=== PATIENT | female | born 1990 | race Caucasian/White ===

== ENCOUNTER 2022-11-24 11:41 | Emergency (ER) | payer MEDICAID, SELFPAY ==
[2022-11-24] VITALS (7 sets, daily range): BP systolic 103–135; BP diastolic 63–97; PULSE 56–116; RESP 16–20; TEMP 36.6–36.8; O2SAT 96–99; BMI 24.7
[2022-11-24 12:12] LABS: Microscopic, Urine URINE MICROSCOPIC (MICROSCOPIC)
[2022-11-24 12:15] LABS: Appearance,Urine CLEAR (Clear); Blood, Urine Negative (Negative); Color,Urine YELLOW (Yellow); Glucose,Urine (UA) Negative (Negative); Ketones,Urine TRACE (Negative); Leukocyte Esterase,Urine TRACE (Negative); Nitrate,Urine Negative (Negative); PH,Urine 5.5 (5.0-8.5); Protein,Urine Negative (Negative); Specific Gravity, Urine >= 1.030 (1.005-1.030); Urobilinogen,Urine 0.2 EU/dl (0.2)
[2022-11-24 12:18] LABS: Urine Pregnancy, HCG Qual. Negative (Negative)
[2022-11-24 12:27] LABS: Bilirubin,Urine Negative (Negative)
[2022-11-24 12:28] LABS: Bacteria,Urine Trace /lpf; RBC,Urine Occasional #/hpf (0-3); WBC,Urine Occasional #/hpf (0-3)
--- NOTE | 2022-11-24 13:15 | PC.NURSE ---
ROUNDED ON PT NO COMPLAINTS AT THIS TIME,DIMMED LIGHT AND LAYED BED BACK FOR PT
--- NOTE | 2022-11-24 13:26 | HMH.EDGENADL ---
Discharge Plan Disposition Patient Disposition: Home, Self-Care Condition: Good Prescriptions Prescriptions: New hydroxyzine HCl 50 mg tablet 50 mg PO Q8H Qty: 14 0RF nitrofurantoin monohyd/m-cryst [Macrobid] 100 mg capsule 100 mg PO BID 5 Days Qty: 10 0RF Rx Instructions: must administer with a meal/food No Action methocarbamol 750 MG tablet 750 mg PO BID Qty: 14 0RF naproxen 500 MG tablet 500 mg PO BID Qty: 14 0RF Referrals Follow up/Referrals: Provider,Referral, MD [Primary Care Provider] - See instructions Clinical Impressions Clinical Impression: Anxiety and depression, Cystitis, Acute anxiety Instructions Patient Instructions: Anxiety Disorders Print Language Print Language: Georgian Discharge ED Provider: Bertrand Rojas General Adult HPI General Chief complaint: Anxiety Stated complaint: SOA bodyaches tense possible anxiety Time Seen by Provider: 11/24/22 13:33 Mode of Arrival: Ambulatory Source of Information: Patient Limitations: No Limitations Description of Symptoms (Recalled from ER Triage Doc. by RN): pt comes in with complaints of generalized anxiety. pt reports that she is going through a breakup. she feels that she is tense in her shoulders, feels that she is being wrang out like a towel . symptoms ongoing for over a month, but symptoms have gotten worse the past few days. History of Present Illness HPI narrative: Patient presents to the emergency department after reportedly having anxiety attack at home. She states that she typically does not go to the doctor and is not currently taking any medication for anxiety at home. She states that she has had tension all over her body. She denies any fever, chills, cough, congestion, chest pain or shortness of breath. Denies any abdominal pain. Denies any possibility of being . Related Data Previous Rx's Medication Instructions Recorded methocarbamol 750 mg tablet 750 mg PO BID #14 tabs 07/15/18 naproxen 500 mg tablet 500 mg PO BID #14 tabs 07/15/18 hydroxyzine HCl 50 mg tablet 50 mg PO Q8H axety #14 tabs 11/24/22 nitrofurantoin 100 mg PO BID 5 days #10 caps 11/24/22 monohydrate/macrocrystals 100 mg capsule (Macrobid) Allergies Allergy/AdvReac Type Severity Reaction Status Date / Time No Known Allergies Allergy Verified 11/24/22 12:24 [facility] Disclaimer: The information contained in this section may have been updated after the patient was seen, as this information can be updated by other users. Social History Smoking Status: Current every day smoker alcohol intake: never current occupational status: employed Travel in the last 8 weeks: Inside the [place] ROS Obtained: Yes All systems reviewed & no additional complaints except as documented Neurologic Comments: Anxiety Physical Exam General General appearance: alert and in no apparent distress Comment: Tearful Head Head exam: atraumatic and normocephalic Eye Eye exam: Present normal appearance, PERRL and EOMI Respiratory Respiratory exam: Present normal lung sounds bilaterally Cardiovascular Cardiovascular exam: Present regular rate, normal rhythm and normal heart sounds Abdominal Exam Abdominal exam: Present soft and normal bowel sounds Extremities Exam Extremities exam: Present normal inspection Neurological Exam Neurological exam: Present alert and oriented X3 Psychiatric Psychiatric exam: Present anxious and other (Tearful) Medical Decision Making Artur Inquiry Pt receiving controlled substance: No Artur was queried for this patient: No Vital Signs: 11/24/22 12:20 11/24/22 11:56 11/24/22 12:00 Temperature 97.9 F Temperature Source Oral Pulse Rate 116 H 87 Pulse Rate [Left] 86 Respiratory Rate 16 Blood Pressure 134/89 128/80 Blood Pressure [Right Arm] 135/87 Blood Pressure Mean 99 100 Blood Pressure Mean [Right Arm] 103 02 Sat by Pulse Oximetry 98 99 98 Oxygen Deborah
== END 2022-11-24 13:47 | disposition home or self-care (01) ==
PROVIDERS: Emergency Provider Emergency Medicine
DX: F41.8 Other specified anxiety disorders (principal); N30.00 Acute cystitis without hematuria; F17.210 Nicotine dependence, cigarettes, uncomplicated
CPT/HCPCS: 81001; 81025; 99283; 99284

== ENCOUNTER → 2022-12-02 23:34 | Outpatient (CLI) | payer MEDICAID, SELFPAY ==
[2022-12-02 17:25] LABS: Alanine Aminotransferase 13 U/L (12-78); Albumin Level 4.9 g/dl (3.5-5.0); Albumin/Globulin Ratio 1.6 (1.1-1.8); Alkaline Phosphatase 70 U/L (38-126); Anion Gap 11.3 mEq/L (5-15); Aspartate Amino Transferase 23 U/L (14-36); Bilirubin,Total 0.9 mg/dl (0.2-1.3); Blood Urea Nitrogen 10 mg/dl (7-17); Calcium 9.5 mg/dl (8.4-10.2); Carbon Dioxide 25 mmol/L (22.0-30.0); Chloride 106 mmol/L (98-107); Cholesterol 144 mg/dl (140-200); Estimated Glomerular Filt Rate 117 ml/min (>60); GFR (African American) 142 ML/MIN (>60); Globulin 3.1 g/dL (1.3-3.2); Glucose 80 mg/dl (74-100); HDL Cholesterol 36 mg/dl (40-60); Potassium 4.3 mmoL/L (3.5-5.1); Sodium 138 mmol/L (136-145); Triglycerides 87 mg/dl (30-150); VLDL Cholesterol 17 mg/dL (0-40)
[2022-12-02 17:27] LABS: Basophils # 0.1 K/mm3 (0-0.2); Eosinophils # 0.2 K/mm3 (0.0-0.4); Eosinophils % 2.4 % (0.1-12.0); Hematocrit 40.4 % (37.0-47.0); Hemoglobin 14.1 g/dL (12.2-16.2); Lymphocytes # 1.4 K/mm3 (0.7-4.5); Mean Corpuscular HGB Conc 34.9 g/dL (31.8-35.4); Mean Corpuscular Hemoglobin 31.1 pg (27.0-31.2); Mean Corpuscular Volume 89.1 fl (81-99); Mean Platelet Volume 8.8 fl (7.4-10.4); Monocytes # 0.5 K/mm3 (0.1-1.0); Neutrophils % 76.5 % (37.0-80.0); Platelet Count 316 K/mm3 (142-424); Red Blood Count 4.53 M/mm3 (4.20-5.40); Red Cell Distribution Width 12.7 % (11.5-17.5); White Blood Count 9.1 K/mm3 (4.8-10.8)
[2022-12-02 17:36] LABS: Direct LDL Cholesterol 94.57 mg/dL (100-129)
[2022-12-02 17:40] LABS: Hemoglobin A1C 4.7 % (4.0-6.0)
== END ==
PROVIDERS: PCP Nurse Practitioner Family; Visit Provider Nurse Practitioner Family
DX: Z00.00 Encounter for general adult medical examination without abnormal findings (principal); Z79.899 Other long term (current) drug therapy
CPT/HCPCS: 80053; 80061; 83036; 84443; 85025

== ENCOUNTER → 2023-06-04 23:50 | Outpatient (CLI) | payer MEDICAID, SELFPAY ==
[2023-06-06 23:09] LABS: Neisseria gonorrhoeae, NAA Negative (Negative)
== END ==
PROVIDERS: PCP Nurse Practitioner Family; Visit Provider Nurse Practitioner Family
DX: R30.9 Painful micturition, unspecified (principal); N39.0 Urinary tract infection, site not specified; B37.31 Acute candidiasis of vulva and vagina; B95.4 Other streptococcus as the cause of diseases classified elsewhere
CPT/HCPCS: 87086; 87088; 87186; 87491; 87591

== ENCOUNTER → 2023-09-03 10:31 | Outpatient (CLI) | payer MEDICAID, SELFPAY ==
[2023-09-03 19:06] LABS: Basophils % 0.5 % (0.1-2.0); Eosinophils # 0.2 K/mm3 (0.0-0.4); Eosinophils % 2.9 % (0.1-12.0); Hematocrit 38.2 % (37.0-47.0); Hemoglobin 13.3 g/dL (12.2-16.2); Lymphocytes # 2.3 K/mm3 (0.7-4.5); Lymphocytes % 37.6 % (10-50); Mean Corpuscular Hemoglobin 31.7 pg (27.0-31.2); Mean Corpuscular Volume 90.7 fl (81-99); Mean Platelet Volume 9.1 fl (7.4-10.4); Monocytes # 0.4 K/mm3 (0.1-1.0); Monocytes % 6.2 % (1.7-9.3); Neutrophils # 3.2 K/mm3 (1.8-7.8); Neutrophils % 52.9 % (37.0-80.0); Platelet Count 332 K/mm3 (142-424); Red Blood Count 4.21 M/mm3 (4.20-5.40); Red Cell Distribution Width 12.8 % (11.5-17.5)
[2023-09-03 19:22] LABS: Alanine Aminotransferase 16 U/L (12-78); Albumin Level 4.2 g/dl (3.5-5.0); Albumin/Globulin Ratio 1.3 (1.1-1.8); Alkaline Phosphatase 45 U/L (38-126); Anion Gap 11.2 mEq/L (5-15); Aspartate Amino Transferase 28 U/L (14-36); Bilirubin,Total 0.4 mg/dl (0.2-1.3); Blood Urea Nitrogen 11 mg/dl (7-17); Calcium 9.3 mg/dl (8.4-10.2); Carbon Dioxide 27 mmol/L (22.0-30.0); Chloride 101 mmol/L (98-107); Estimated Glomerular Filt Rate 144 ml/min (>60); GFR (African American) 174 ML/MIN (>60); Globulin 3.2 g/dL (1.3-3.2); Glucose 95 mg/dl (74-100); Potassium 4.2 mmoL/L (3.5-5.1); Sodium 135 mmol/L (136-145); Total Protein,Serum 7.4 g/dl (6.3-8.2)
[2023-09-03 19:38] LABS: Free T4 (Free Thyroxine) 0.93 ng/dl (0.78-2.19)
[2023-09-03 19:39] LABS: 25-OH Vitamin D, Total 58.1 ng/mL (30-100)
[2023-09-03 19:54] LABS: Thyroid Stimulating Hormone 0.87 uIU/mL (0.465-4.68)
[2023-09-03 20:13] LABS: Vitamin B12 290 pg/mL (239-931)
[2023-09-03 20:32] LABS: Iron 74 ug/dL (37-170)
[2023-09-03 20:42] LABS: Total Iron Binding Capacity 424 ug/dL (265-497)
[2023-09-03 21:07] LABS: Ferritin 13.2 ng/ml (6.24-137)
== END ==
PROVIDERS: PCP Nurse Practitioner Family; Visit Provider Nurse Practitioner Family
DX: R53.83 Other fatigue (principal); F41.9 Anxiety disorder, unspecified; F33.2 Major depressive disorder, recurrent severe without psychotic features; Z79.899 Other long term (current) drug therapy
CPT/HCPCS: 80053; 82306; 82607; 82728; 83540; 83550; 84439; 84443; 85025

== ENCOUNTER 2023-12-03 18:20 | Outpatient (CLI) | payer MEDICAID, SELFPAY ==
[2023-12-03 18:10] LABS: Microscopic, Urine URINE MICROSCOPIC (MICROSCOPIC)
[2023-12-03 19:08] LABS: Appearance,Urine CLEAR (Clear); Bilirubin,Urine Negative (Negative); Blood, Urine 2+ (Negative); Color,Urine YELLOW (Yellow); Glucose,Urine (UA) Negative (Negative); Ketones,Urine Negative (Negative); Leukocyte Esterase,Urine Negative (Negative); Nitrate,Urine Negative (Negative); PH,Urine 6.5 (5.0-8.5); Protein,Urine Negative (Negative); Urobilinogen,Urine 0.2 EU/dl (0.2)
[2023-12-03 19:31] LABS: Bacteria,Urine Trace /lpf
[2023-12-06 06:29] LABS: Neisseria gonorrhoeae, NAA Negative (Negative)
== END 2023-12-03 23:59 ==
LOC: LAB.DROPOF 18:20
PROVIDERS: PCP Nurse Practitioner Family; Visit Provider Nurse Practitioner Family
DX: B96.89 Other specified bacterial agents as the cause of diseases classified elsewhere; N76.0 Acute vaginitis
CPT/HCPCS: 81001; 87086; 87491; 87591

== ENCOUNTER 2024-01-22 21:39 | Emergency (ER) | payer SELFPAY ==
[2024-01-22 21:41] VITALS: BP 130/83; PULSE 87; RESP 18; TEMP 36.9; O2SAT 98; BMI 21.2
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
[2024-01-22] MEDS: KETOROLAC 30MG/ML VIAL 30 MG IM (21:58)
[2024-01-22] MEDS: ACETAMINOPHEN 500MG TAB 1000 MG PO (21:58)
[2024-01-22 22:30] LABS: Urine Pregnancy, HCG Qual. Negative (Negative)
[2024-01-22 22:53] VITALS: BP 124/70; PULSE 105; RESP 19; TEMP 36.8; O2SAT 98
== END 2024-01-22 23:00 | disposition home or self-care (01) ==
PROVIDERS: Physician Assistant; Emergency Provider Student in an Organized Health Care Education/Training Program
DX: M54.2 Cervicalgia (principal); F17.210 Nicotine dependence, cigarettes, uncomplicated; V49.40XA Driver injured in collision with unspecified motor vehicles in traffic accident, initial encounter; Y92.410 Unspecified street and highway as the place of occurrence of the external cause
CPT/HCPCS: 81025; 96372; 99283

== ENCOUNTER 2024-01-27 18:20 | Emergency (ER) | payer MEDICAID, SELFPAY ==
[2024-01-27 19:20] VITALS: BP 127/77; PULSE 111; RESP 18; TEMP 36.7; O2SAT 99; BMI 22.5
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
[2024-01-27 19:38] LABS: UTC Influenza A Antigen Positive (Negative); UTC Influenza B Antigen Negative (Negative)
[2024-01-27 19:44] VITALS: BP 127/77; PULSE 111; RESP 18; TEMP 36.7; O2SAT 99
== END 2024-01-27 19:44 | disposition home or self-care (01) ==
PROVIDERS: Emergency Provider Nurse Practitioner; PCP Nurse Practitioner Family
DX: J10.1 Influenza due to other identified influenza virus with other respiratory manifestations (principal); R51.9 Headache, unspecified; R09.81 Nasal congestion; R05.9 Cough, unspecified; F17.210 Nicotine dependence, cigarettes, uncomplicated
CPT/HCPCS: 87804; 99204; 99212; G0463

== ENCOUNTER 2024-03-25 16:41 | Outpatient (CLI) | payer MEDICAID, SELFPAY ==
[2024-03-25 16:27] LABS: Microscopic, Urine URINE MICROSCOPIC (MICROSCOPIC)
[2024-03-25 16:55] LABS: Bilirubin,Urine Negative (Negative); Blood, Urine Negative (Negative); Color,Urine YELLOW (Yellow); Glucose,Urine (UA) Negative (Negative); Ketones,Urine Negative (Negative); Leukocyte Esterase,Urine 1+ (Negative); Nitrate,Urine Negative (Negative); Protein,Urine Negative (Negative); Urobilinogen,Urine 0.2 EU/dl (0.2)
[2024-03-25 17:00] LABS: Appearance,Urine Cloudy (Clear)
[2024-03-25 17:18] LABS: Bacteria,Urine Trace /lpf; Squamous Epithelial Cell,Urine Occasional #/hpf (0-5)
[2024-03-26 12:36] LABS: HIV (1&2) Antibody Rapid NON REACTIVE
[2024-03-27 10:35] LABS: HCV Ab Non Reactive (Non Reactive); Rapid Plasma Reagin Ab Titer Non Reactive titer (NonRea<1:1)
[2024-03-29 20:10] LABS: Neisseria gonorrhoeae, NAA Negative (Negative)
[2024-03-30 13:45] LABS: HSV-1 DNA Negative (Negative); HSV-2 DNA Negative (Negative)
== END 2024-03-25 23:59 | disposition home or self-care (01) ==
LOC: LAB.DROPOF 16:41
PROVIDERS: PCP Nurse Practitioner Family; Visit Provider Nurse Practitioner Family
DX: Z11.3 Encounter for screening for infections with a predominantly sexual mode of transmission (principal); L81.8 Other specified disorders of pigmentation; N89.8 Other specified noninflammatory disorders of vagina
CPT/HCPCS: 86703; 86803; 81001; 86593; 87086; 87491; 87529; 87591

== ENCOUNTER 2024-06-23 14:01 | Outpatient (CLI) | payer MEDICAID, SELFPAY ==
[2024-06-23 19:05] LABS: Adenovirus,PCR Not Detected (NotDetected); Bordetella Pertussis Not Detected (NotDetected); Chlamydophila Pneumoniae, PCR Not Detected (NotDetected); Coronavirus 19, PCR Not Detected (NotDetected); Coronavirus 229E Not Detected (NotDetected); Coronavirus NL63 Not Detected (NotDetected); Coronavirus OC43 Not Detected (NotDetected); Coronovirus HKU1,PCR Not Detected (NotDetected); Human Metapneumovirus Not Detected (NotDetected); Influenza A, PCR Not Detected (NotDetected); Influenza AH1, 2009 Not Detected (NotDetected); Influenza AH1, PCR Not Detected (NotDetected); Influenza AH3,PCR Not Detected (NotDetected); Influenza B, PCR Not Detected (NotDetected); Mycoplasma Pneumoniae, PCR Not Detected (NotDetected); Parainfluenza 1, PCR Not Detected (NotDetected); Parainfluenza 2, PCR Not Detected (NotDetected); Parainfluenza 3, PCR Not Detected (NotDetected); Parainfluenza 4, PCR Not Detected (NotDetected); Respiratory Syncytial Virus Not Detected (NotDetected)
[2024-06-23 21:18] LABS: Rhinovirus/Enterovirus Detected (NotDetected)
== END 2024-06-23 23:59 | disposition home or self-care (01) ==
LOC: LAB.DROPOF 06-24 10:16
PROVIDERS: PCP Nurse Practitioner Family; Visit Provider Nurse Practitioner Family
DX: J02.9 Acute pharyngitis, unspecified (principal); J98.8 Other specified respiratory disorders; B97.89 Other viral agents as the cause of diseases classified elsewhere; Z72.0 Tobacco use
CPT/HCPCS: 87070; 87077; 87186; 87265; 87486; 87581; 87632; 87635

== ENCOUNTER 2024-08-20 10:43 | Outpatient (CLI) | payer MEDICAID, SELFPAY ==
[2024-08-20 17:55] LABS: Microscopic, Urine URINE MICROSCOPIC (MICROSCOPIC)
[2024-08-20 18:38] LABS: Appearance,Urine CLEAR (Clear); Bilirubin,Urine Negative (Negative); Blood, Urine Negative (Negative); Color,Urine YELLOW (Yellow); Glucose,Urine (UA) Negative (Negative); Ketones,Urine Negative (Negative); Leukocyte Esterase,Urine Negative (Negative); Nitrate,Urine Negative (Negative); Protein,Urine Negative (Negative); Specific Gravity, Urine >= 1.030 (1.005-1.030); Urobilinogen,Urine 0.2 EU/dl (0.2)
[2024-08-20 19:22] LABS: Bacteria,Urine 4+ /lpf; Triple Phosphate Crystal,Urine 1+ /lpf
[2024-08-20 21:02] LABS: HIV (1&2) Antibody Rapid NONREACTIVE (NONREACTIVE)
[2024-08-22 09:09] LABS: Rapid Plasma Reagin Ab Titer Non Reactive titer (NonRea<1:1)
[2024-08-22 13:08] LABS: HBsAg Screen Negative (Negative); HCV Ab Non Reactive (Non Reactive); Hep A Ab, IGM Negative (Negative); Hep B Core Ab, IgM Negative (Negative)
[2024-08-23 20:16] LABS: Neisseria gonorrhoeae, NAA Negative (Negative)
[2024-08-25 13:12] LABS: HSV-1 DNA Negative (Negative); HSV-2 DNA Negative (Negative)
== END 2024-08-20 23:59 | disposition home or self-care (01) ==
LOC: LAB.DROPOF 08-23 10:45
PROVIDERS: PCP Student in an Organized Health Care Education/Training Program; Visit Provider Student in an Organized Health Care Education/Training Program
DX: N93.0 Postcoital and contact bleeding (principal); Z11.3 Encounter for screening for infections with a predominantly sexual mode of transmission; R39.9 Unspecified symptoms and signs involving the genitourinary system
CPT/HCPCS: 80074; 81001; 86593; 87086; 87389; 87491; 87529; 87591

== ENCOUNTER 2025-01-28 01:24 | Emergency (ER) | payer MEDICAID, SELFPAY ==
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
[2025-01-28 01:42] VITALS: BP 122/93; PULSE 88; RESP 16; TEMP 37; O2SAT 100; BMI 23.0
[2025-01-28] MEDS: AMOXICILLIN/CLAVULANATE POTASSIUM 875/125MG TABLET 1 EACH PO (01:44)
[2025-01-28 01:49] VITALS: BP 125/75; PULSE 68; RESP 18; TEMP 36.6; O2SAT 100
== END 2025-01-28 01:49 | disposition home or self-care (01) ==
PROVIDERS: Emergency Provider Emergency Medicine; PCP Nurse Practitioner Family
DX: M54.2 Cervicalgia (principal); L04.0 Acute lymphadenitis of face, head and neck; H92.01 Otalgia, right ear
CPT/HCPCS: 99284

== ENCOUNTER 2025-04-23 04:47 | Emergency (ER) | payer MEDICAID, SELFPAY ==
[2025-04-23 04:53] VITALS: BP 123/94; PULSE 107; RESP 16; TEMP 36.6; O2SAT 98; BMI 24.3
--- NOTE | 2025-04-23 04:56 | PC.NURSE ---
raised red rash noted to biltateral forearms, above right eye and below.
--- OUTSIDE RECORDS SUMMARY | 2025-04-23 04:58 | XMS_ITS | Clinical Summary ---
Author Organization Healthcare Address [address] [place] [address] Care Team Providers Care Shoer Name Role Phone Unavailable Primary Care Provider Unavailabl e Encounters Date Type Department Care Team Description 02/16/2025 Telephone [facility] [address] [place] [address] None, None from Last 3 Months Social History Tobacco Use Types Packs/Day Years Used Date Smoking Tobacco: Never Assessed Comments Unknown Sex and Gender Information Value Date Recorded Sex Assigned at Not on file Legal Sex Female 5:55 PM EDT Gender Identity Not on file Sexual Orientation Not on file Plan of Treatment Not on file
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
[2025-04-23 05:43] VITALS: BP 99/68; PULSE 67; RESP 16; TEMP 36.6; O2SAT 99
== END 2025-04-23 05:43 | disposition home or self-care (01) ==
PROVIDERS: Emergency Provider Emergency Medicine; PCP Nurse Practitioner Family
DX: L23.7 Allergic contact dermatitis due to plants, except food (principal); W60.XXXA Contact with nonvenomous plant thorns and spines and sharp leaves, initial encounter
CPT/HCPCS: 99283

== ENCOUNTER 2025-06-21 15:53 | Outpatient (CLI) | payer MEDICAID, SELFPAY ==
[2025-06-21 16:59] LABS: Microscopic, Urine URINE MICROSCOPIC (MICROSCOPIC)
[2025-06-21 17:35] LABS: Hematocrit 33.2 % (37.0-47.0); Hemoglobin 11.7 g/dL (12.2-16.2); Immature Granulocytes % 0.3 %; Mean Corpuscular HGB Conc 35.2 g/dL (31.8-35.4); Mean Corpuscular Hemoglobin 32.0 pg (27.0-31.2); Mean Corpuscular Volume 90.7 fl (81-99); Nucleated Red Blood Cells % 0 %; Platelet Count 305 K/mm3 (142-424); Red Blood Count 3.66 M/mm3 (4.20-5.40); Red Cell Distribution Width-SD 39.6 fL; White Blood Count 6.4 K/mm3 (4.8-10.8)
[2025-06-21 17:37] LABS: Bilirubin,Urine Negative (Negative); Color,Urine YELLOW (Yellow); Glucose,Urine (UA) Negative (Negative); Ketones,Urine TRACE (Negative); Leukocyte Esterase,Urine Negative (Negative); PH,Urine 6.0 (5.0-8.5); Protein,Urine TRACE (Negative); Specific Gravity, Urine >= 1.030 (1.005-1.030); Urobilinogen,Urine 1.0 EU/dl (0.2)
[2025-06-21 17:54] LABS: Albumin Level 4.2 g/dl (3.5-5.0); Chloride 103 mmol/L (98-107); Potassium 3.9 mmoL/L (3.5-5.1); Sodium 135 mmol/L (136-145)
[2025-06-21 17:56] LABS: Blood Urea Nitrogen 12 mg/dl (7-17); Creatinine,Serum 0.70 mg/dl (0.52-1.04); Estimated Glomerular Filt Rate 96 ml/min (>60); GFR (African American) 117 ML/MIN (>60)
[2025-06-21 17:57] LABS: Alanine Aminotransferase 9 U/L (12-78); Albumin/Globulin Ratio 1.6 (1.1-1.8); Alkaline Phosphatase 38 U/L (38-126); Anion Gap 14.9 mEq/L (5-15); Aspartate Amino Transferase 22 U/L (14-36); Bilirubin,Total 0.6 mg/dl (0.2-1.3); Calcium 9.5 mg/dl (8.4-10.2); Carbon Dioxide 21 mmol/L (22.0-30.0); Globulin 2.7 g/dL (1.3-3.2); Glucose 91 mg/dl (74-100); HCG Qualitative, Serum Negative (Negative); Iron 106 ug/dL (37-170); Total Protein,Serum 6.9 g/dl (6.3-8.2)
[2025-06-21 18:00] LABS: WBC,Urine Occasional #/hpf (0-3)
[2025-06-21 18:01] LABS: Amorphous Sediment,Urine 3+ /lpf; Bacteria,Urine 1+ /lpf; Calcium Oxalate Crystals,Urine 2+ /lpf
[2025-06-21 18:06] LABS: Total Iron Binding Capacity 365 ug/dL (265-497)
[2025-06-21 18:45] LABS: Hepatitis C Ab Qual. W/ RFX NEGATIVE (Negative)
[2025-06-21 19:04] LABS: Ferritin 14.6 ng/ml (6.24-137)
--- OUTSIDE RECORDS SUMMARY | 2025-06-22 12:36 | XMS_ITS | Clinical Summary ---
Author Organization Healthcare Address [address] [place] [address] Care Team Providers Care Glove Turner And Former Automatic Name Role Phone Unavailable Primary Care Provider Unavailabl e Social History Tobacco Use Types Packs/Day Years Used Date Smoking Tobacco: Never Assessed Comments Unknown Sex and Gender Information Value Date Recorded Sex Assigned at Not on file Legal Sex Female 5:55 PM EDT Gender Identity Not on file Sexual Orientation Not on file Plan of Treatment Not on file
[2025-06-22 15:13] LABS: RPR W/RFX Titers Nonreactive (Nonreactive)
== END 2025-06-21 23:59 | disposition home or self-care (01) ==
LOC: LAB.DROPOF 06-22 12:35
PROVIDERS: PCP Nurse Practitioner Family; Visit Provider Nurse Practitioner Family
DX: R41.3 Other amnesia (principal); Z11.59 Encounter for screening for other viral diseases; Z91.89 Other specified personal risk factors, not elsewhere classified; Z11.3 Encounter for screening for infections with a predominantly sexual mode of transmission; R53.83 Other fatigue; N93.9 Abnormal uterine and vaginal bleeding, unspecified; R10.2 Pelvic and perineal pain
CPT/HCPCS: 80053; 80074; 81001; 82728; 83540; 83550; 84703; 85025; 86592; 86803; 87086; 87389; 87491; 87529; 87591; 87661

== ENCOUNTER 2025-09-24 15:21 | Emergency (ER) | payer MEDICAID, SELFPAY ==
[2025-09-24] VITALS (7 sets, daily range): BP systolic 96–133; BP diastolic 61–114; PULSE 63–115; RESP 18–19; TEMP 36.7; O2SAT 97–99; BMI 23.9
--- NOTE | 2025-09-24 15:28 | XR_ITS ---
PROCEDURE INFORMATION: Exam: XR Right Ribs with PA Chest Exam date and time: 09/24/2025 3:50 PM Age: 35 years old Clinical indication: Chest wall pain; Right; Additional info: Pain in right side, PT was throwing an item in dumpster and felt like she pulled a muscle x 1 hour ago. Vapes x 1.5 yrs TECHNIQUE: Imaging protocol: Radiologic exam of the right ribs with PA chest. Views: 3 views COMPARISON: No relevant prior studies available. FINDINGS: Lungs: Unremarkable. No consolidation. Pleural spaces: Unremarkable. No pleural effusion. No pneumothorax. Heart/Mediastinum: Unremarkable. No cardiomegaly. Bones/joints: Unremarkable. IMPRESSION: No acute findings.
--- OUTSIDE RECORDS SUMMARY | 2025-09-24 15:29 | XMS_ITS | Clinical Summary ---
Author Organization Healthcare Address [address] [place] [address] Care Team Providers Care Carbide Tool Die Maker Name Role Phone Unavailable Primary Care Provider [...]
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
[2025-09-24] MEDS: KETOROLAC 30MG/ML VIAL 30 MG IM (15:38)
[2025-09-24] MEDS: ORPHENADRINE CITRATE 60MG/2ML VIAL 60 MG IM (15:38)
--- NOTE | 2025-09-24 17:00 | PC.NURSE ---
pt xray has been assigned but rad not locked in yet to be read
== END 2025-09-24 17:22 | disposition home or self-care (01) ==
PROVIDERS: Emergency Provider Student in an Organized Health Care Education/Training Program; PCP Nurse Practitioner Family
DX: M62.830 Muscle spasm of back (principal); M54.9 Dorsalgia, unspecified; X50.0XXA Overexertion from strenuous movement or load, initial encounter
CPT/HCPCS: 71101; 96372; 99283; 99284; J1885; J2360